=== PATIENT | male | born 1990 | race African-American/Black ===

== ENCOUNTER 2017-08-27 12:50 | Emergency (ER) | payer SELFPAY ==
[~2017-08-27] VITALS: Ht 180.3 cm; Wt 109.0 kg
[2017-08-27 13:05] VITALS: BP 149/95; PULSE 88; RESP 16; TEMP 98.8; O2SAT 99
[2017-08-27] MEDS ORDERED: PENI500T PO (16:06)
[2017-08-27] MEDS ORDERED: MAGICADU2 SWISH-SPIT (16:06)
--- NOTE | 2017-08-27 16:06 | PD ---
HPI Chief Complaint: Oral / Dental Pain or Problem Time Seen by Provider: 15:20 Travel History International Travel<30 days: No Contact w/Intl Traveler<30days: No Traveled to known affect area: No History of Present Illness HPI Patient 27-year-old male presents emergency department for evaluation of dental pain. He states resuming the area and has a dentist but has been able to follow -up yet. States right lower jaw. Denies any jaw swelling fevers difficulty swallowing or tongue protrusion. Moderate , on and off for the past few months worsening over the past week, associated signs symptoms as above. PFSH Past Medical History Medical History: Denies Significant Hx ?: Not Past Surgical History Surgical History: No Previous Surgery Social History Alcohol Use: No Tobacco Use: Yes (SOMETIMES) Substance Use: No Allergies-Medications (Allergen,Severity, Reaction): Coded Allergies: No Known Allergies (Unverified , 08/27/17) Reported Meds & Prescriptions Reported Meds & Active Scripts Active Magic Mouthwash Adult Liq (Multi-Ingredient Mouthwash/Gargle) 120 Ml Susp 5 Ml SWISH-SPIT ACHS Each 5mL contains: Nystatin 200,000units, Diphenhydramine 4.25mg, Viscous Lidocaine 10mg, Khan syrup 0.8 mL Penicillin V Potassium 500 Mg Tab 500 Mg PO Q6H 7 Days Review of Systems Except as stated in HPI: all other systems reviewed are Neg Physical Exam Narrative GENERAL: Well-developed well-nourished no obvious, holding a towel to his face. SKIN: Focused skin assessment warm/dry. HEAD: Atraumatic. Normocephalic. EYES: Pupils equal and round. No scleral icterus. No injection or drainage. ENT: No nasal bleeding or discharge. Mucous membranes pink and moist. Multiple dental caries, seems to be a right second molar. No jaw swelling, no dental abscess seen. No tongue protrusion, no swelling or tenderness. NECK: Trachea midline. No JVD. Supple CARDIOVASCULAR: Regular rate and rhythm. No murmur appreciated. RESPIRATORY: No accessory muscle use. Clear to auscultation. Breath sounds equal bilaterally. GASTROINTESTINAL: Abdomen soft, non-tender, nondistended. Hepatic and splenic margins not palpable. MUSCULOSKELETAL: No obvious deformities. No clubbing. No cyanosis. No edema. NEUROLOGICAL: Awake and alert. No obvious cranial nerve deficits. Motor grossly within normal limits. Normal speech. PSYCHIATRIC: Appropriate mood and affect; insight and judgment normal. Data Data Last Documented VS Vital Signs Date Time Temp Pulse Resp B/P (MAP) Pulse Ox O2 Delivery O2 Flow Rate FiO2 08/27/17 17:01 08/27/17 13:05 98.8 88 16 99 Orders Orders Tramadol (Ultram) (08/27/17 16:15) Ed Discharge Order (08/27/17 16:06) MDM Medical Decision Making Medical Screen Exam Complete: Yes Emergency Medical Condition: Yes Differential Diagnosis Dental pain, dental caries, apical abscess. Narrative Course Discussed symptomatic management follow-up with a dentist return to ED criteria. Patient stable for discharge. Diagnosis Primary Impression: Pain, dental Med/Other Pt SpecificInfo: Prescription(s) given Scripts Rxzmxriu-Tagiadnxnnhbfqe-Rsjjqqskp Liq (Magic Mouthwash Adult Liq) 120 Ml Susp 5 ML SWISH-SPIT ACHS for Mouth sores, #120 ML 0 Refills Each 5mL contains: Nystatin 200,000units, Diphenhydramine 4.25mg, Viscous Lidocaine 10mg, Khan syrup 0.8 mL Prov: Iker Sanders MD 08/27/17 Penicillin V Potassium (Penicillin V Potassium) 500 Mg Tab 500 MG PO Q6H for Infection for 7 Days, #28 TAB 0 Refills Prov: Iker Sanders MD 08/27/17 Disposition: 01 DISCHARGE HOME Condition: Stable Iker Sanders MD Aug 27, 2017 16:06
[2017-08-27] MEDS ORDERED: traMADol HCL 50 MG TAB PO ONE (16:15)
== END 2017-08-27 17:01 | disposition home or self-care (01) ==
LOC: NEPD 12:50
DX: K08.89 Other specified disorders of teeth and supporting structures (principal); Z72.0 Tobacco use
CPT/HCPCS: 99283